=== PATIENT | female | born 2000 | race American Indian/Alaskan Native ===

== ENCOUNTER 2022-04-09 19:54 | Emergency (ER) | payer SELFPAY ==
[~2022-04-09 19:54] MED LIST: Sodium Chloride 0.9% 10 ML Syringe FLUSH PRN
[2022-04-09 20:05] LABS: ANION GAP 12.8 mEq/L (7-13); CHLORIDE,CL 107 mmol/L (98-107); SODIUM,NA 142 mmol/L (136-145)
[2022-04-09 20:11] LABS: ESTIMATED GFR 104 mL/min (>=60)
== END 2022-04-09 20:25 | disposition left against medical advice (07) ==
LOC: DL.ED 19:54
DX: F19.129 Other psychoactive substance abuse with intoxication, unspecified (principal); M54.2 Cervicalgia; Y04.0XXA Assault by unarmed brawl or fight, initial encounter
CPT/HCPCS: 36415; 70450; 72125; 80053; 80307; 85025; 93005; 99285

== ENCOUNTER 2022-08-28 22:56 | Emergency (ER) | payer SELFPAY | END 2022-08-28 23:38 | disposition left against medical advice (07) | LOC: DL.ED 22:56 | DX: Z53.21 Procedure and treatment not carried out due to patient leaving prior to being seen by health care provider (principal) ==